=== PATIENT | female | born 1950 | race African-American/Black ===

== ENCOUNTER 2016-02-25 00:11 | Emergency (ER) | payer OTHER ==
[2016-02-25] MEDS ORDERED: OPTIRAY 350 100 ML VIAL HMH IV ONE (00:12)
[2016-02-25] MEDS ORDERED: ASPIRIN 81 MG CHEW TAB ONE (00:36)
[2016-02-25] MEDS ORDERED: ONDANSETRON 4 MG VIAL ONE (00:58)
[2016-02-25] MEDS ORDERED: METOPROLOL TART 25 MG TAB ONE (03:31)
[2016-02-25] MEDS ORDERED: LABETALOL 100 MG/20 ML VIAL ONE (03:31)
[2016-02-25] MEDS ORDERED: PROMETHAZINE 25 MG/ML VIAL ONE (04:04)
[2016-02-25] MEDS ORDERED: ONDANSETRON ODT 4 MG TAB ONE (06:32)
== END 2016-02-25 06:39 | disposition home or self-care (01) ==
LOC: ER 00:11
DX: R07.9 Chest pain, unspecified (principal); I10 Essential (primary) hypertension; Z79.84 Long term (current) use of oral hypoglycemic drugs; Z79.899 Other long term (current) drug therapy
CPT/HCPCS: 36415; 71010; 74177; 80053; 81003; 82550; 82553; 83735; 84484; 85025; 85379; 85610; 85730; 93005; 96374; 96375; 96376; 99285; J2405; J2550; Q9967